=== PATIENT | male | born 1970 | race Native Hawaiian/Other Pacific Islander ===

== ENCOUNTER 2017-09-27 20:00 | Emergency (ER) | payer BC, OTHER ==
[~2017-09-27] VITALS: Ht 170.2 cm; Wt 83.7 kg
[~2017-09-27 20:00] MED LIST: ALPR1TAB3 PO; ASPI-516 CHEW; ATEN25TA PO; ATOR40TA16 PO; BUSP5TAB PO; LISI-588 PO; NITR0.4S SL; PRAS10TA PO
[2017-09-27 20:02] VITALS: BP 105/67; PULSE 96; RESP 18; TEMP 97.7; O2SAT 99
[2017-09-27] MEDS ORDERED: LOSA25TA PO (20:28)
[2017-09-27] MEDS ORDERED: HYDR-4107 PO (20:28)
[2017-09-27] MEDS ORDERED: SODIUM CHLOR 0.9% 1000 ML INJ 1,000 ML IV SCH (20:35)
[2017-09-27] MEDS ORDERED: SODIUM CHLORIDE 0.9% FLUSH 10 ML FLUSH IV FLUSH PRN (20:45)
--- NOTE | 2017-09-27 20:48 | PD ---
HPI Chief Complaint: GI Complaint Time Seen by Provider: 20:30 Travel History International Travel<30 days: No Contact w/Intl Traveler<30days: No Traveled to known affect area: No History of Present Illness HPI Patient is a 46-year-old male with history of "heart disease" who presents the emergency room with complaints of diarrhea with lower abdominal pain. Patient reports that he has had lower abdominal pain for the past few weeks, his doctor placed him on Cipro and Flagyl which he completed last week. Patient reports that he is still having multiple episodes of diarrhea, reports that it seems that he may be having diarrhea every 15 minutes. Patient reports crampy lower abdominal pain at this time. Patient with no fever chills, denies any nausea or vomiting. Patient with no sick contacts, denies any recent travels or trips. Patient reports that he feels weak and dehydrated. Patient reports overall decreased oral intake due to his diarrhea. PFSH Past Medical History Hx Anticoagulant Therapy: Yes (EFFIENT) Heart Rhythm Problems: No Cancer: No Cardiac Catheterization: Yes Cardiovascular Problems: Yes (AK, STENT, HTN, CHOL) High Cholesterol: Yes Chemotherapy: No Chest Pain: Yes Congestive Heart Failure: No Diabetes: No Endocrine: No Gastrointestinal Disorders: No Genitourinary: No Heparin Induced Thrombocytopen: No Hypertension: Yes Immune Disorder: No Implanted Vascular Access Dvce: No Musculoskeletal: No Neurologic: No Psychiatric: No Respiratory: No Myocardial Infarction: Yes Radiation Therapy: No Past Surgical History Body Medical Devices: 3 cardiac stents Coronary Artery Bypass Graft: No Coronary Stent: Yes (x3) Other Surgery: Yes (3 Stents, bilateral carpal tunnel sx) Social History Alcohol Use: Yes Tobacco Use: No Substance Use: No Allergies-Medications (Allergen,Severity, Reaction): Coded Allergies: No Known Allergies (Unverified Adverse Reaction, Unknown, 09/27/17) Reported Meds & Prescriptions Reported Meds & Active Scripts Active Nitrostat SL (Nitroglycerin) 0.4 Mg Subl 0.4 Mg SL Q5M PRN Alprazolam 1 Mg Tab 1 Mg PO Q12HR PRN Atorvastatin (Atorvastatin Calcium) 40 Mg Tab 40 Mg PO HS Atenolol 25 Mg Tab 25 Mg PO DAILY Reported Hydrocodone-Acetaminophen 5-300 Mg Tab 1 Tab PO TID PRN Losartan (Losartan Potassium) 25 Mg Tab 75 Mg PO DAILY Zestril (Lisinopril) 2.5 Mg Tab 2.5 Mg PO DAILY Buspirone (Buspirone HCl) 5 Mg Tab 5 Mg PO DAILY Effient (Prasugrel) 10 Mg Tab 10 Mg PO DAILY Aspirin 81 Mg Chew 81 Mg CHEW DAILY Review of Systems General / Constitutional: No: Fever Eyes: No: Visual changes HENT: No: Headaches Cardiovascular: No: Chest Pain or Discomfort Respiratory: No: Shortness of Breath Gastrointestinal: Positive: Diarrhea, Abdominal Pain, No: Nausea, Vomiting, Constipation Genitourinary: No: Dysuria Musculoskeletal: No: Pain Skin: No Rash Neurologic: Positive: Weakness Psychiatric: No: Depression Endocrine: No: Polydipsia Hematologic/Lymphatic: No: Easy Bruising Physical Exam Narrative GENERAL: Moderate distress SKIN: Focused skin assessment warm/dry. HEAD: Atraumatic. Normocephalic. EYES: Pupils equal and round. No scleral icterus. No injection or drainage. ENT: No nasal bleeding or discharge. Mucous membranes pink and moist. NECK: Trachea midline. No JVD. CARDIOVASCULAR: Regular rate and rhythm. No murmur appreciated. RESPIRATORY: No accessory muscle use. Clear to auscultation. Breath sounds equal bilaterally. GASTROINTESTINAL: Abdomen soft, increased tenderness to lower abdomen with no rebound or guarding on exam, nondistended. Hepatic and splenic margins not palpable. MUSCULOSKELETAL: No obvious deformities. No clubbing. No cyanosis. No edema. NEUROLOGICAL: Awake and alert. No obvious cranial nerve deficits. Motor grossly within normal limits. Normal speech. PSYCHIATRIC: Appropriate mood and affect; insight and judgment normal. Data Data Last Documented VS Vital Signs Date Time Temp Pulse Resp B/P (MAP) Pulse Ox O2 Delivery O2 Flow Rate FiO2 09/27/17 22:35 73 16 105/69 (81) 96 Room Air 09/27/17 20:02 97.7 Orders Orders C Diff Toxin Pcr (09/27/17 20:35) Complete Blood Count With Diff (09/27/17 20:35) Comprehensive Metabolic Panel (09/27/17 20:35) Lipase (09/27/17 20:35) Prothrombin Time / Inr (Pt) (09/27/17 20:35) Act Partial Throm Time (Ptt) (09/27/17 20:35) Urinalysis - C+S If Indicated (09/27/17 20:35) Ct Abd/Pel W Iv Contrast(Rout) (09/27/17 20:35) Iv Access Insert/Monitor (09/27/17 20:35) Ecg Monitoring (09/27/17 20:35) Oximetry (09/27/17 20:35) NPO (09/27/17 20:35) Sodium Chlor 0.9% 1000 Ml Inj (Ns 1000 M (09/27/17 20:35) Sodium Chloride 0.9% Flush (Ns Flush) (09/27/17 20:45) Stool Ova And Parasite Screen (09/27/17 20:35) Iohexol 350 Inj (Omnipaque 350 Inj) (09/27/17 22:10) Labs Laboratory Tests Test 09/27/17 21:10 White Blood Count 10.8 TH/MM3 Red Blood Count 5.41 MIL/MM3 Hemoglobin 15.4 GM/DL Hematocrit 46.9 % Mean Corpuscular Volume 86.6 FL Mean Corpuscular Hemoglobin 28.4 PG Mean Corpuscular Hemoglobin Concent 32.8 % Red Cell Distribution Width 12.0 % Platelet Count 255 TH/MM3 Mean Platelet Volume 8.0 FL Neutrophils (%) (Auto) 87.0 % Lymphocytes (%) (Auto) 5.1 % Monocytes (%) (Auto) 4.4 % Eosinophils (%) (Auto) 0.2 % Basophils (%) (Auto) 3.3 % Neutrophils # (Auto) 9.3 TH/MM3 Lymphocytes # (Auto) 0.6 TH/MM3 Monocytes # (Auto) 0.5 TH/MM3 Eosinophils # (Auto) 0.0 TH/MM3 Basophils # (Auto) 0.4 TH/MM3 CBC Comment DIFF FINAL Differential Comment Prothrombin Time 10.6 SEC Prothromb Time International Ratio 1.0 RATIO Activated Partial Thromboplast Time 26.6 SEC Urine Color YELLOW Urine Turbidity CLEAR Urine pH 6.0 Urine Specific [place] 1.015 Urine Protein NEG mg/dL Urine Glucose (UA) NEG mg/dL Urine Ketones TRACE mg/dL Urine Occult Blood NEG Urine Nitrite NEG Urine Bilirubin NEG Urine Urobilinogen 0.2 MG/DL Urine Leukocyte Esterase NEG Urine RBC 0-3 /hpf Urine WBC 3-5 /hpf Urine Squamous Epithelial Cells 0-5 /hpf Urine Amorphous Sediment FEW Urine Mucus MOD /lpf Microscopic Urinalysis Comment CULT NOT INDICATED Blood Urea Nitrogen 10 MG/DL Creatinine 1.00 MG/DL Random Glucose 90 MG/DL Total Protein 7.2 GM/DL Albumin 3.9 GM/DL Calcium Level 8.5 MG/DL Alkaline Phosphatase 69 U/L Aspartate Amino Transf (AST/SGOT) 20 U/L Alanine Aminotransferase (ALT/SGPT) 31 U/L Total Bilirubin 1.0 MG/DL Sodium Level 135 MEQ/L Potassium Level 4.0 MEQ/L Chloride Level 104 MEQ/L Carbon Dioxide Level 22.6 MEQ/L Anion Gap 8 MEQ/L Estimat Glomerular Filtration Rate 80 ML/MIN Lipase 132 U/L MDM Medical Decision Making Medical Screen Exam Complete: Yes Emergency Medical Condition: Yes Medical Record Reviewed: Yes Interpretation(s) Vital Signs Date Time Temp Pulse Resp B/P (MAP) Pulse Ox O2 Delivery O2 Flow Rate FiO2 09/27/17 20:02 97.7 96 18 105/67 (80) 99 Differential Diagnosis Colitis, diverticulitis, electrolyte abnormality, appendicitis, UTI Narrative Course 46-year-old male who presents to emergency room with complaints of diarrhea for the past few weeks, reports that he completed a course of ciprofloxacin as well as Flagyl last week for his diarrhea, reports persistent diarrhea along with lower abdominal pain. During the course of the patients emergency department visit, the patients history, examination, and differential diagnosis were reviewed with the patient. The patient was placed on a electrical appliance servicer with oximetry and frequent blood pressure monitoring. The patient had an IV access obtained and blood work sent for analysis. The patient was initially provided IVF. The patients laboratory studies were reviewed and remarkable for Laboratory Tests Test 09/27/17 21:10 White Blood Count 10.8 TH/MM3 (4.0-11.0) Red Blood Count 5.41 MIL/MM3 (4.50-5.90) Hemoglobin 15.4 GM/DL (13.0-17.0) Hematocrit 46.9 % (39.0-51.0) Mean Corpuscular Volume 86.6 FL (80.0-100.0) Mean Corpuscular Hemoglobin 28.4 PG (27.0-34.0) Mean Corpuscular Hemoglobin Concent 32.8 % (32.0-36.0) Red Cell Distribution Width 12.0 % (11.6-17.2) Platelet Count 255 TH/MM3 (150-450) Mean Platelet Volume 8.0 FL (7.0-11.0) Neutrophils (%) (Auto) 87.0 % (16.0-70.0) Lymphocytes (%) (Auto) 5.1 % (9.0-44.0) Monocytes (%) (Auto) 4.4 % (0.0-8.0) Eosinophils (%) (Auto) 0.2 % (0.0-4.0) Basophils (%) (Auto) 3.3 % (0.0-2.0) Neutrophils # (Auto) 9.3 TH/MM3 (1.8-7.7) Lymphocytes # (Auto) 0.6 TH/MM3 (1.0-4.8) Monocytes # (Auto) 0.5 TH/MM3 (0-0.9) Eosinophils # (Auto) 0.0 TH/MM3 (0-0.4) Basophils # (Auto) 0.4 TH/MM3 (0-0.2) CBC Comment DIFF FINAL Differential Comment Prothrombin Time 10.6 SEC (9.8-11.6) Prothromb Time International Ratio 1.0 RATIO Activated Partial Thromboplast Time 26.6 SEC (24.3-30.1) Urine Color YELLOW (YELLW/STRAW) Urine Turbidity CLEAR (CLEAR) Urine pH 6.0 (5.0-8.5) Urine Specific [place] 1.015 (1.002-1.035) Urine Protein NEG mg/dL (NEG-TRACE) Urine Glucose (UA) NEG mg/dL (NEG) Urine Ketones TRACE mg/dL (NEG) Urine Occult Blood NEG (NEG) Urine Nitrite NEG (NEG) Urine Bilirubin NEG (NEG) Urine Urobilinogen 0.2 MG/DL (LESS THAN Urine Leukocyte Esterase NEG (NEG) Urine RBC 0-3 /hpf (0-3) Urine WBC 3-5 /hpf (0-5) Urine Squamous Epithelial Cells 0-5 /hpf (0-5) Urine Amorphous Sediment FEW Urine Mucus MOD /lpf (OCC) Microscopic Urinalysis Comment CULT NOT INDICATED Blood Urea Nitrogen 10 MG/DL (7-18) Creatinine 1.00 MG/DL (0.60-1.30) Random Glucose 90 MG/DL (74-106) Total Protein 7.2 GM/DL (6.4-8.2) Albumin 3.9 GM/DL (3.4-5.0) Calcium Level 8.5 MG/DL (8.5-10.1) Alkaline Phosphatase 69 U/L (45-117) Aspartate Amino Transf (AST/SGOT) 20 U/L (15-37) Alanine Aminotransferase (ALT/SGPT) 31 U/L (12-78) Total Bilirubin 1.0 MG/DL (0.2-1.0) Sodium Level 135 MEQ/L (136-145) Potassium Level 4.0 MEQ/L (3.5-5.1) Chloride Level 104 MEQ/L (98-107) Carbon Dioxide Level 22.6 MEQ/L (21.0-32.0) Anion Gap 8 MEQ/L (5-15) Estimat Glomerular Filtration Rate 80 ML/MIN (>89) Lipase 132 U/L (73-393) . Radiology studies were reviewed and remarkable for Last Impressions Abdomen/Pelvis CT 09/27/172034 Signed Impressions: Service Date/Time: Wednesday, September 27, 2017 22:12 - CONCLUSION: Normal examination. Bill Barroso MD cbc: wbc 10.8, hemoglobin 15.4, hematocrit 46.9, platelets 255 Sodium 135, potassium 4.0, BUN 10, creatinine 1.0, glucose 90 LFTs: wnl UA with trace ketones C. difficile pending Stool cultures pending CT of the abdomen and pelvis with no acute findings, I reviewed all labs and studies with patient in detail. Discussed with him need to follow up with cultures from today. He will follow up with a nuclear engineering technician and will return to ER as needed. Diagnosis Primary Impression: Abdominal pain Qualified Codes: R10.30 - Lower abdominal pain, unspecified Additional Impressions: Diarrhea Qualified Codes: R19.7 - Diarrhea, unspecified Dehydration Referrals: Maria Guadalupe Noel MD Patient Instructions: General Instructions Additional Instructions: Please provide patient with a copy of their lab work and studies at discharge* * Please follow up with your primary care doctor in 2-3 days Return to the ER if symptoms worsen or progress Return to the ER as needed Please follow-up with all cultures from today - please call medical records for results of your stool cultures Disposition: 01 DISCHARGE HOME Condition: Stable Tabatha Rgnifer Tr BANSAL Sep 27, 2017 20:48
[2017-09-27 21:18] VITALS: RESP 16; O2SAT 99
[2017-09-27 21:23] LABS: AUTOMATED NEUTROPHIL # 9.3 TH/MM3 (1.8-7.7); BASOPHIL # 0.4 TH/MM3 (0-0.2); BASOPHIL % 3.3 % (0.0-2.0); EOSINOPHIL % 0.2 % (0.0-4.0); HEMATOCRIT 46.9 % (39.0-51.0); HEMOGLOBIN 15.4 GM/DL (13.0-17.0); LYMPH % 5.1 % (9.0-44.0); LYMPHOCYTE # 0.6 TH/MM3 (1.0-4.8); MEAN CELL VOLUME 86.6 FL (80.0-100.0); MEAN CORPUSCULAR HEMOGLOBIN 28.4 PG (27.0-34.0); MEAN CORPUSCULAR HGB CONC 32.8 % (32.0-36.0); MONO % 4.4 % (0.0-8.0); MONOCYTE # 0.5 TH/MM3 (0-0.9); PLATELET COUNT 255 TH/MM3 (150-450); RED BLOOD COUNT 5.41 MIL/MM3 (4.50-5.90); WHITE BLOOD COUNT 10.8 TH/MM3 (4.0-11.0)
[2017-09-27 21:27] LABS: BILIRUBIN, URINE NEG (NEG); BLOOD, URINE NEG (NEG); GLUCOSE,URINE NEG (NEG); KETONE, URINE TRACE mg/dL (NEG); NITRITE,URINE NEG (NEG); URINE COLOR YELLOW (YELLW/STRAW); URINE LEUKOCYTE ESTERASE NEG (NEG)
[2017-09-27 21:30] LABS: CHLORIDE 104 MEQ/L (98-107); SODIUM (NA) 135 MEQ/L (136-145)
[2017-09-27 21:33] LABS: ALBUMIN 3.9 GM/DL (3.4-5.0); BICARBONATE 22.6 MEQ/L (21.0-32.0); CALCIUM 8.5 MG/DL (8.5-10.1); GLUCOSE,RANDOM 90 MG/DL (74-106); PROTHROMBIN TIME - PATIENT 10.6 SEC (9.8-11.6)
[2017-09-27 21:34] LABS: BLOOD UREA NITROGEN 10 MG/DL (7-18)
[2017-09-27 21:36] LABS: ALT (GPT) 31 U/L (12-78); AST (GOT) 20 U/L (15-37); GLOMERULAR FILTRATION RATE 80 ML/MIN (>89)
[2017-09-27 21:37] LABS: MUCUS URINE MOD /lpf (OCC); RBC, URINE 0-3 /hpf (0-3); SQUAMOUS EPITHELIAL CELL URINE 0-5 /hpf (0-5)
[2017-09-27 21:38] LABS: AMORPHOUS SEDIMENT, URINE FEW; TOTAL PROTEIN 7.2 GM/DL (6.4-8.2)
[2017-09-27 21:39] LABS: ALKALINE PHOSPHATASE 69 U/L (45-117)
[2017-09-27] MEDS ORDERED: IOHEXOL 350 MG/ML 10 ML VIAL (for RAD DIAG) IVCONTRAST ONE (22:10)
[2017-09-27 22:35] VITALS: BP 105/69; PULSE 73; RESP 16; O2SAT 96
--- NOTE | 2017-09-27 22:47 | RADRPT ---
EXAM DATE/TIME: 09/27/2017 22:12 [facility] COMPARISON: No previous studies available for comparison. INDICATIONS : Diffuse abdomen pain and diarrhea for one week. IV CONTRAST: 70 cc Omnipaque 350 (iohexol) IV ORAL CONTRAST: No oral contrast ingested. RADIATION DOSE: 12.34 CTDIvol (mGy) MEDICAL HISTORY : Myocardial infarction. Hypertension. SURGICAL HISTORY : cardiac catheterization ENCOUNTER: Initial ACUITY: 1 week PAIN SCALE: 6/10 LOCATION: Bilateral abdomen TECHNIQUE: Volumetric scanning of the abdomen and pelvis was performed. Using automated exposure control and ad justment of the mA and/or kV according to patient size, radiation dose was kept as low as reasonably achievable to obtain optimal diagnostic quality images. DICOM format image data is available electro nically for review and comparison. FINDINGS: LOWER LUNGS: The visualized lower lungs are clear. LIVER: Homogeneous density without lesion. There is no dilation of the biliary tree. No calcified gallston es. SPLEEN: Normal size without lesion. PANCREAS: Within normal limits. KIDNEYS: Normal in size and shape. There is no mass, stone or hydronephrosis. ADRENAL GLANDS: Within normal limits. VASCULAR: There is no aortic aneurysm. BOWEL/MESENTERY: The stomach, small bowel, and colon demonstrate no acute abnormality. There is no free intraperitone al air or fluid. ABDOMINAL WALL: Within normal limits. RETROPERITONEUM: There is no lymphadenopathy. BLADDER: No wall thickening or mass. REPRODUCTIVE: Within normal limits. INGUINAL: There is no lymphadenopathy or hernia. MUSCULOSKELETAL: Within normal limits for patient age. CONCLUSION: Normal examination. Bill Barroso MD on September 27, 2017 at 22:42 Board Certified Radiologist. This report was verified electronically.
[2017-09-27 23:36] VITALS: BP 115/73
== END 2017-09-27 23:47 | disposition home or self-care (01) ==
LOC: PHED 20:00
DX: R19.7 Diarrhea, unspecified (principal); R10.30 Lower abdominal pain, unspecified; E86.0 Dehydration; R53.1 Weakness; I10 Essential (primary) hypertension; E78.00 Pure hypercholesterolemia, unspecified; I25.2 Old myocardial infarction
CPT/HCPCS: 74177; 80053; 81001; 83690; 85025; 85610; 85730; 87328; 87329; 87493; 96360; 99285; J7030; Q9967